=== PATIENT | male | born 1990 | race Caucasian/White ===

== ENCOUNTER 2016-08-28 10:16 | Emergency (ER) | payer OTHER ==
--- NOTE | 2016-08-28 12:13 | ED ORDER SUMMARY ---
..... Patient: MARK RODRIGUEZ OrderSheet [facility] VisitID: [id number] [place] [address] 25y, M Registration Date/Time: 08/28/2016 ORDER SHEET Weight: 72.5 kg (stated) Allergies: No Known Drug Allergy GENERAL ORDERS: CBC w Diff [facility]gent ([facility]2016 [facility] (Ack 11:22 LTapper) (11:40 SRoberts R.N.) CMP Urgent (11:08/28/2016 [facility]) (Ack 11:22 LTapper) (11:40 SRoberts R.N.) UA-Culture if indicated Urgent (:08/28/2016 ) (Ack 11:22 LTapper) (11:40 SRoberts R.N.) Amylase Urgent (11:08/28/2016 [facility]) (Ack 11:22 LTapper) (11:40 SRoberts R.N.) Lipase Urgent (11:08/28/2016 [facility]) (Ack 11:22 LTapper) (11:40 SRoberts R.N.) Urine Drug Screen Urgent (:08/28/2016 [facility]) (Ack 11:22 LTapper) (11:40 SRoberts R.N.) [facility] (11:40 SRoberts R.N.) MEDICATION ORDERS: Zofran ODT PO 4 mg (NOW) (11:08/28/2016 [facility]) (11:39 SRoberts R.N.) IV FLUIDS: IV Saline Lock (10:51 08/28/2016 SRoberts R.N. per protocol) (10:52 SRoberts R.N.) IV NS : initial bolus 1000 mL (1000 mL/hr), then 1000 mL/hr for X1 (NOW) (11:08/28/2016 [facility] DO) (Cancelled: Patient [id number]: ) Zofran IV 4 mg (NOW) (11:20 08/28/2016 Wayne PRICE) (Cancelled: Patient [id number] [facility] PRICE) ORDER SHEET NOTES: [Electronically signed by Chana Villalobos R.N. (14:46 08/28/2016)] [Electronically signed by Yves Ramirez DO (16:14 08/28/2016)] [Electronically locked/signed by Chana Villalobos R.N. (14:46 08/28/2016)]
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
--- NOTE | 2016-08-28 12:13 | ED ORDER SUMMARY ---
..... Patient: MARK RODRIGUEZ OrderSheet [facility] VisitID: [id number] [place] [address] 25y, M Registration Date/Time: 08/28/2016 ORDER SHEET Weight: 72.5 kg (stated) Allergies: No Known Drug Allergy GENERAL ORDERS: CBC w Diff [facility] (Ack 11:22 LTapper) (11:40 SRoberts R.N.) CMP Urgent (11:08/28/2016 [facility] (Ack 11:22 LTapper) (11:40 SRoberts R.N.) UA-Culture if indicated Urgent (:08/28/2016 ) (Ack 11:22 LTapper) (11:40 SRoberts R.N.) Amylase Urgent (11:08/28/2016 [facility]) (Ack 11:22 LTapper) (11:40 SRoberts R.N.) Lipase Urgent (11:08/28/2016 [facility] (Ack 11:22 LTapper) (11:40 SRoberts R.N.) Urine Drug Screen Urgent (:08/28/2016 [facility]) (Ack 11:22 LTapper) (11:40 SRoberts R.N.) NPO (:[facility]28[facility]) (11:40 SRoberts R.N.) MEDICATION ORDERS: Zofran ODT PO 4 mg (NOW) (11:08/28/2016 [facility]) (11:39 SRoberts R.N.) IV FLUIDS: IV Saline Lock (10:51 08/28/2016 SRoberts R.N. per protocol) (10:52 SRoberts R.N.) IV NS : initial bolus 1000 mL (1000 mL/hr), then 1000 mL/hr for X1 (NOW) (11:08/28/2016 [facility] DO) (Cancelled: Patient [id number]: ) Zofran IV 4 mg (NOW) (11:20 08/28/2016 [facility] PRICE) (Cancelled: Patient [id number] Wayne PRICE) ORDER SHEET NOTES: [Electronically signed by Chana Villalobos R.N. (14:46 08/28/2016)] [Electronically signed by Yves Ramirez DO (16:14 08/28/2016)] [Electronically locked/signed by Chana Villalobos R.N. (14:46 08/28/2016)]
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
--- NOTE | 2016-08-28 16:15 | ED MED RECONCILIATION SUMMARY ---
Patient: MARK RODRIGUEZ Medication Reconciliation Report [facility] VisitID: [id number] [place] [address] 25y, M Registration Date/Time: 08/28/2016 Weight: 72.5 kg Height/Length: 70 in. BMI: 22.9 ALLERGIES: No Known Drug Allergy The patient's Home Medications are listed below: NONE. The source(s) of the original Home Medication information: patient The following Medications were given to the patient in the Emergency Department: Zofran ODT [PO] PO 4 mg, administered: 08/28/2016 11:39:00 AM The following Medications were prescribed to the patient: Take acetaminophen (Tylenol, Datril, etc.) and ibuprofen (Advil, Nuprin, etc.) according to label instructions. Available over the counter. -- Yves Ramirez DO Hydrocodone/APAP 5mg / 325mg: take 1-2 orally every 8 hours as needed for pain. Dispense ten (10). No refill. -- Yves Ramirez DO Zofran (orally disintegrating tablets) 4 mg: take 1-2 orally every 8 hours as needed for vomiting. No refill. Substitution is permissible. -- Yves Ramirez DO
--- NOTE | 2016-08-28 16:15 | ED MAR SUMMARY ---
..... Medication Administration Record [facility] [address] [place] [address] Patient: MARK RODRIGUEZ Visit ID: [id number] 25y, M Weight: 72.5 kg Height/Length: 70 in BMI: 22.9 ALLERGIES: No Known Drug Allergy Given 11:39 08/28/2016 Lina Peng R.N. Medication Administered: ZOFRAN ODT [PO] (ONDANSETRON), Dose: 4 mg PO. Medication Ordered: Zofran ODT PO 4 mg (NOW).
--- NOTE | 2016-08-28 16:15 | ED MED RECONCILIATION SUMMARY ---
Patient: MARK RODRIGUEZ Medication Reconciliation Report [facility] VisitID: [id number] [place] [address] 25y, M Registration Date/Time: 08/28/2016 Weight: 72.5 kg Height/Length: 70 in. BMI: 22.9 ALLERGIES: No Known Drug Allergy The patient's Home Medications are listed below: NONE. The source(s) of the original Home Medication information: patient The following Medications were given to the patient in the Emergency Department: Zofran ODT [PO] PO 4 mg, administered: 08/28/2016 11:39:00 AM The following Medications were prescribed to the patient: Take acetaminophen (Tylenol, Datril, etc.) and ibuprofen (Advil, Nuprin, etc.) according to label instructions. Available over the counter. -- Yves Ramirez DO Hydrocodone/APAP 5mg / 325mg: take 1-2 orally every 8 hours as needed for pain. Dispense ten (10). No refill. -- Yves Ramirez DO Zofran (orally disintegrating tablets) 4 mg: take 1-2 orally every 8 hours as needed for vomiting. No refill. Substitution is permissible. -- Yves Ramirez DO
--- NOTE | 2016-08-28 16:15 | ED MAR SUMMARY ---
..... Medication Administration Record [facility] [address] [place] [address] Patient: MARK RODRIGUEZ Visit ID: [id number] 25y, M Weight: 72.5 kg Height/Length: 70 in BMI: 22.9 ALLERGIES: No Known Drug Allergy Given 11:39 08/28/2016 Lina Peng R.N. Medication Administered: ZOFRAN ODT [PO] (ONDANSETRON), Dose: 4 mg PO. Medication Ordered: Zofran ODT PO 4 mg (NOW).
--- NOTE | 2016-08-28 16:15 | ED DISCHARGE INSTRUCTIONS ---
Patient: MARK RODRIGUEZ General Instructions [facility] VisitID: [id number] [place] [address] 25y, M Registration Date/Time: 08/28/2016 Vomiting with nausea. Not intractable. Diarrhea Acute generalized abdominal pain of unknown cause. Chronic substance abuse- marijuana. Mild leukocytosis. No lymphocytosis. INSTRUCTIONS Do not work for three days. Drink plenty of fluids. No alcohol until released. (MANDATORY RECHECK IN 12 - 24 HOURS UNLESS BETTER). Warnings: Further evaluation is necessary in order to conduct further tests. It is very important to follow up with a physician. GENERAL WARNINGS: Return or contact your physician immediately if your condition worsens or changes unexpectedly, if not improving as expected, or if other problems arise. Prescription Medications: Hydrocodone/APAP 5mg / 325mg: take 1-2 orally every 8 hours as needed for pain. Dispense ten (10). No refill. Zofran (orally disintegrating tablets) 4 mg: take 1-2 orally every 8 hours as needed for vomiting. No refill. Substitution is permissible. OTC Medications: Take acetaminophen (Tylenol, Datril, etc.) and ibuprofen (Advil, Nuprin, etc.) according to label instructions. Available over the counter. Follow-up: Follow up with your doctor tomorrow. ADDITIONAL INFORMATION Diarrhea, Uncertain Cause (Adult, Report Pending) Diarrhea has several possible causes. Commonstomach fluis caused by a virus. Food poisoning, bacteria or parasites are other causes for diarrhea. Only diarrhea caused by bacteria or parasites requires treatment with an antibiotic. Diarrhea from a virus or food poisoning improves with simple home treatment. A stool sample is needed to make the diagnosis of an infection with bacteria or parasites. Up to three stool specimens may be required to diagnose This may take up to two days to get the result. It may be necessary to wait until the stool test is complete to make the diagnosis and select the best antibiotic to prescribe. Home Care: If symptoms are severe, rest at home for the next 24 hours or until you are feeling better. You may use acetaminophen (Tylenol) or ibuprofen (Motrin, Advil) to control fever, unless another medicine was prescribed. [NOTE: If you have chronic liver or kidney disease or ever had a stomach ulcer or GI bleeding, talk with your doctor before using these medicines.] (Aspirin should never be used in anyone under 18 years of age who is ill with a fever. It may cause severe liver damage.) Avoid tobacco, caffeine and alcohol, which may worsen your symptoms. If anti-diarrhea medicine was prescribed, take this only as directed. Sometimes anti-diarrhea medicine can make your condition worse if the cause is an infectious diarrhea. Therefore, anti-diarrhea medicine should not be taken for this condition unless advised by your doctor. During The First 12-24 Hours follow the diet below: BEVERAGES: Sport drinks like Gatorade, soft drinks without caffeine; marisel julieth, mineral water (plain or flavored), decaffeinated tea and coffee. SOUPS: Clear broth, consomm and bouillon DESSERTS: Plain gelatin (Jell-O), popsicles and fruit juice bars. During The Next 24 Hours you may add the following to the above: Hot cereal, plain toast, bread, rolls, crackers Plain noodles, rice, mashed potatoes, chicken noodle or rice soup Unsweetened canned fruit (avoid pineapple), bananas Limit fat intake to less than 15 grams per day by avoiding margarine, butter, oils, mayonnaise, sauces, gravies, fried foods, peanut butter, meat, poultry and fish. Limit fiber; avoid raw or cooked vegetables, fresh fruits (except bananas) and bran cereals. Limit caffeine and chocolate. No spices or seasonings except salt. During The Next 24 Hours Gradually resume a normal diet, as you feel better and your symptoms lessen. Follow Up with your doctor or as advised if you are not improving over the next two days. If you were asked to bring a specimen from home, bring the sample on the day of collection. You may call in 2 days (or as directed) for the results. Get Prompt Medical Attention if any of the following occur: Increasing abdominal pain or constant lower right abdominal pain Continued vomiting (unable to keep liquids down) Frequent diarrhea (more than 5 times a day) Blood in vomit or stool (black or red color) Reduced oral intake Dark urine, reduced urine output Weakness, dizziness, fainting Drowsiness, confusion, stiff neck or seizure Fever of 100.4F (38C) oral or higher, not better with fever medication New rash Hydrocodone Bitartrate, Acetaminophen Oral tablet What is this medicine? ACETAMINOPHEN; HYDROCODONE (a set a KASEY sherley fen; kindra droe KOE done) is a pain reliever. It is used to treat mild to moderate pain. How should I use this medicine? Take this medicine by mouth. Swallow it with a full glass of water. Follow the directions on the prescription label. If the medicine upsets your stomach, take the medicine with food or milk. Do not take more than you are told to take. Talk to your crm marketing executive regarding the use of this medicine in children. This medicine is not approved for use in children. What side effects may I notice from receiving this medicine? Side effects that you should report to your doctor or health livestock caretaker as soon as possible: allergic reactions like skin rash, itching or hives, swelling of the face, lips, or tongue breathing problems confusion feeling faint or lightheaded, falls stomach pain yellowing of the eyes or skin Side effects that usually do not require medical attention (report to your doctor or health livestock caretaker if they continue or are bothersome): nausea, vomiting stomach upset What may interact with this medicine? alcohol antihistamines isoniazid medicines for depression, anxiety, or psychotic disturbances medicines for sleep muscle relaxants naltrexone narcotic medicines (opiates) for pain phenobarbital ritonavir tramadol What if I miss a dose? If you miss a dose, take it as soon as you can. If it is almost time for your next dose, take only that dose. Do not take double or extra doses. Where should I keep my medicine? Keep out of the reach of children. This medicine can be abused. Keep your medicine in a safe place to protect it from theft. Do not share this medicine with anyone. Selling or giving away this medicine is dangerous and against the law. Store at room temperature between 15 and 30 degrees C (59 and 86 degrees F). Protect from light. Keep container tightly closed. Throw away any unused medicine after the expiration date. Discard unused medicine and used packaging carefully. Pets and children can be harmed if they find used or lost packages. What should I tell my health care provider before I take this medicine? They need to know if you have any of these conditions: brain tumor Crohn's disease, inflammatory bowel disease, or ulcerative colitis drink more than 3 alcohol-containing drinks per day drug abuse or addiction head injury heart or circulation problems kidney disease or problems going to the bathroom liver disease lung disease, asthma, or breathing problems an unusual or allergic reaction to acetaminophen, hydrocodone, other opioid analgesics, other medicines, foods, dyes, or preservatives or trying to get breast-feeding What should I watch for while using this medicine? Tell your doctor or health livestock caretaker if your pain does not go away, if it gets worse, or if you have new or a different type of pain. You may develop tolerance to the medicine. Tolerance means that you will need a higher dose of the medicine for pain relief. Tolerance is normal and is expected if you take the medicine for a long time. Do not suddenly stop taking your medicine because you may develop a severe reaction. Your body becomes used to the medicine. This does NOT mean you are addicted. Addiction is a behavior related to getting and using a drug for a non-medical reason. If you have pain, you have a medical reason to take pain medicine. Your doctor will tell you how much medicine to take. If your doctor wants you to stop the medicine, the dose will be slowly lowered over time to avoid any side effects. You may get drowsy or dizzy when you first start taking the medicine or change doses. Do not drive, use machinery, or do anything that may be dangerous until you know how the medicine affects you. Stand or sit up slowly. There are different types of narcotic medicines (opiates) for pain. If you take more than one type at the same time, you may have more side effects. Give your health care provider a list of all medicines you use. Your doctor will tell you how much medicine to take. Do not take more medicine than directed. Call emergency for help if you have problems breathing. The medicine will cause constipation. Try to have a bowel movement at least every 2 to 3 days. If you do not have a bowel movement for 3 days, call your doctor or health livestock caretaker. Too much acetaminophen can be very dangerous. Do not take Tylenol (acetaminophen) or medicines that contain acetaminophen with this medicine. Many non-prescription medicines contain acetaminophen. Always read the labels carefully. Ondansetron Oral disintegrating tablet What is this medicine? ONDANSETRON (on JAYDON se massiel) is used to treat nausea and vomiting caused by chemotherapy. It is also used to prevent or treat nausea and vomiting after surgery. How should I use this medicine? These tablets are made to dissolve in the mouth. Do not try to push the tablet through the foil backing. With dry hands, peel away the foil backing and gently remove the tablet. Place the tablet in the mouth and allow it to dissolve, then swallow. While you may take these tablets with water, it is not necessary to do so. Talk to your crm marketing executive regarding the use of this medicine in children. Special care may be needed. What side effects may I notice from receiving this medicine? Side effects that you should report to your doctor or health livestock caretaker as soon as possible: allergic reactions like skin rash, itching or hives, swelling of the face, lips, or tongue breathing problems dizziness fast or irregular heartbeat feeling faint or lightheaded, falls fever and chills swelling of the hands and feet tightness in the chest Side effects that usually do not require medical attention (report to your doctor or health livestock caretaker if they continue or are bothersome): constipation or diarrhea headache What may interact with this medicine? Do not take this medicine with any of the following medications: -apomorphine -cisapride -dofetilide -dronedarone -pimozide -thioridazine -ziprasidone This medicine may also interact with the following medications: -carbamazepine -phenytoin -rifampicin -tramadol -other medicines that prolong the QT interval (cause an abnormal heart rhythm) What if I miss a dose? If you miss a dose, take it as soon as you can. If it is almost time for your next dose, take only that dose. Do not take double or extra doses. Where should I keep my medicine? Keep out of the reach of children. Store between 2 and 30 degrees C (36 and 86 degrees F). Throw away any unused medicine after the expiration date. What should I tell my health care provider before I take this medicine? They need to know if you have any of these conditions: heart disease history of irregular heartbeat liver disease low levels of magnesium or potassium in the blood an unusual or allergic reaction to ondansetron, granisetron, other medicines, foods, dyes, or preservatives or trying to get breast-feeding What should I watch for while using this medicine? Check with your doctor or health livestock caretaker as soon as you can if you have any sign of an allergic reaction. You have been given the following additional information: Diarrhea, Unk Cause (Adult) Report Pendg Hydrocodone Bitartrate, Acetaminophen Oral tablet Ondansetron Oral disintegrating tablet Do not work for three days. (Electronically signed by Yves Ramirez DO 08/28/2016 16:14)
== END 2016-08-28 12:25 | disposition home or self-care (01) ==
LOC: ED SRH 10:16
DX: R10.84 Generalized abdominal pain (principal); R11.2 Nausea with vomiting, unspecified; R19.7 Diarrhea, unspecified; D72.829 Elevated white blood cell count, unspecified; F12.10 Cannabis abuse, uncomplicated
CPT/HCPCS: 90004; 90100; 92235; 92530; 92760; 92761; 92762; 92763; 92764; 92765; 92766; 92767; 95059

== ENCOUNTER 2016-10-07 03:12 | Emergency (ER) | payer OTHER ==
--- NOTE | 2016-10-07 03:36 | ED NURSING NOTES ---
Clinical Report - Nurses [facility] [address] [address] 10/07/2016 3:13 Patient: MARK RODRIGUEZ TRIAGE History ( pt brought back to ED room and demanded to be seen in room with "". Pt informed that we need to see them in separate room and that they can be taken to the others room when treatment is complete. Pt then says "just cancel it then".). --03:34 Tressa Morfin R.N. DISPOSITION / DISCHARGE The patient left the Emergency Department before triage and without being seen by a physician; patient was accompanied by spouse. The patient appears to be alert, oriented x4, coherent and in no acute distress. The patient notified the ED staff prior to leaving the department and stated is leaving the ED due to personal reasons (wants to be in same room with .). Notified the ED physician of patient departure. Patient signed form prior to leaving. He left the Emergency Department ambulatory. --03:35 Tressa Morfin R.N. Locked/Released at 10/07/2016 3:35 by Tressa Morfin R.N.
--- NOTE | 2016-10-07 03:36 | ED MED RECONCILIATION SUMMARY ---
Patient: MARK RODRIGUEZ Medication Reconciliation Report [facility] VisitID: [id number] [address] [place] [place] [address] 25y, M Registration Date/Time: 10/07/2016 Weight: (not available) Height/Length: (not available) BMI: (not available) ALLERGIES: The patient's Home Medications are listed below: Not obtained. The source(s) of the original Home Medication information: Not obtained. The following Medications were given to the patient in the Emergency Department: None. The following Medications were prescribed to the patient: None.
--- NOTE | 2016-10-07 03:36 | ED MAR SUMMARY ---
..... Medication Administration Record [facility] [address] [place], [place] [id number] Patient: MARK RODRIGUEZ Visit ID: [id number] 25y, M Weight: (not available) Height/Length: (not available) BMI: (not available) ALLERGIES:
--- NOTE | 2016-10-07 03:36 | ED MAR SUMMARY ---
..... Medication Administration Record [facility] [address] [place], [place] [id number] Patient: MARK RODRIGUEZ Visit ID: [id number] 25y, M Weight: (not available) Height/Length: (not available) BMI: (not available) ALLERGIES:
--- NOTE | 2016-10-07 03:36 | ED MED RECONCILIATION SUMMARY ---
Patient: MARK RODRIGUEZ Medication Reconciliation Report [facility] VisitID: [id number] [address] [place] [address] 25y, M Registration Date/Time: 10/07/2016 Weight: (not available) Height/Length: (not available) BMI: (not available) ALLERGIES: The patient's Home Medications are listed below: Not obtained. The source(s) of the original Home Medication information: Not obtained. The following Medications were given to the patient in the Emergency Department: None. The following Medications were prescribed to the patient: None.
--- NOTE | 2016-10-07 03:36 | ED NURSING NOTES ---
Clinical Report - Nurses [facility] [address] [place] [address] 10/07/2016 3:13 Patient: MARK RODRIGUEZ TRIAGE History ( pt brought back to ED room and demanded to be seen in room with "". Pt informed that we need to see them in separate room and that they can be taken to the others room when treatment is complete. Pt then says "just cancel it then".). --03:34 Tressa Morfin R.N. DISPOSITION / DISCHARGE The patient left the Emergency Department before triage and without being seen by a physician; patient was accompanied by spouse. The patient appears to be alert, oriented x4, coherent and in no acute distress. The patient notified the ED staff prior to leaving the department and stated is leaving the ED due to personal reasons (wants to be in same room with .). Notified the ED physician of patient departure. Patient signed form prior to leaving. He left the Emergency Department ambulatory. --03:35 Tressa Morfin R.N. Locked/Released at 10/07/2016 3:35 by Tressa Morfin R.N.
== END 2016-10-07 03:30 | disposition home or self-care (01) ==
LOC: ED SRH 03:12
DX: Z53.21 Procedure and treatment not carried out due to patient leaving prior to being seen by health care provider (principal)